=== PATIENT | male | born 1950 | race Caucasian/White ===

== ENCOUNTER 2020-07-03 17:16 | Inpatient (IN) ==
[2020-07-03] MEDS ORDERED: Ondansetron 4 MG/2 ML VIAL IVP STA (17:52)
[2020-07-03] MEDS ORDERED: Ketorolac 15 MG/ML VIAL IVP ONE (17:52)
[2020-07-03] MEDS ORDERED: *HR* HYDROmorphone (PF) 1 MG/ML SYRINGE IVP STA ×2 (17:52→19:22)
[2020-07-03] MEDS ORDERED: 0.9 % Sodium Chloride 1,000 ML IVC ONE (17:54)
[2020-07-03 18:14] LABS: Bilirubin,Urine Negative (Negative); Blood,Urine Small (Negative); Clarity,Urine Clear (Clear); Color,Urine Yellow (Yellow); Glucose,Urine (UA) Normal (Normal); Ketones,Urine Negative (Negative); Leukocyte Esterase,Urine Negative (Negative); Mucus,Urine Few per lpf (None-Few); Nitrite,Urine Negative (Negative); Protein,Urine Negative (Neg-Trace); Specific Gravity,Urine 1.022 (1.010-1.025); WBC,Urine 0-3 per hpf (0-3)
[2020-07-03] MEDS ORDERED: MetroNIDAZOLE 500 MG/100 ML 500 MG/100 ML BAG IVPB ONE (18:30)
[2020-07-03 19:27] LABS: Basophils % 0.4 %; Eosinophils # 0.2 K/mcL (0.0-0.6); Eosinophils % 2.6 %; Hematocrit 33.3 % (37.5-50.1); Immature Granulocytes % 0.3 % (0-4); Lymphocytes # 1.1 K/mcL (0.6-4.6); Lymphocytes % 14.2 %; Mean Platelet Volume 10.9 fL (9.4-12.4); Monocytes % 12.8 %; Neutrophils # 5.3 K/mcL (1.6-8.9); Platelet Count 242 K/mcL (140-400); Red Blood Count 4.16 M/mcL (4.19-5.50); Red Cell Distribution Width 15.3 % (11.5-14.5); Segmented Neutrophils % 69.7 %; White Blood Count 7.7 K/mcL (4.3-11.1)
[2020-07-03 19:49] LABS: Alanine Aminotransferase 13 Units/L (7-52); Albumin 3.7 g/dL (3.5-5.7); Albumin/Globulin Ratio 1.2 (1.1-2.2); Alkaline Phosphatase 74 Units/L (34-104); Aspartate Amino Transferase 18 Units/L (13-39); BUN/Creatinine Ratio 20 (6-26); Bilirubin,Direct 0.1 mg/dL (0.0-0.2); Bilirubin,Indirect 0.4 mg/dL (0.0-1.0); Bilirubin,Total 0.5 mg/dL (0.3-1.0); Blood Urea Nitrogen 17 mg/dL (8-23); Calcium 8.9 mg/dL (8.6-10.3); Carbon Dioxide 27 mEq/L (23-29); Chloride 102 mEq/L (98-107); Globulin 3.2 g/dL (2.4-3.5); Glucose 109 mg/dL (70-105); Lipase 20 Units/L (11-82); Osmolality,Calculated 288 (280-300); Potassium 3.9 mEq/L (3.5-5.1); Sodium 138 mEq/L (136-145); Total Protein 6.9 g/dL (6.4-8.9); eGFR For African Americans > 60 (> 60); eGFR For Non-African Americans > 60 (> 60)
[2020-07-03] MEDS ORDERED: Ondansetron 4 MG/2 ML VIAL IVP PRN (20:09)
[2020-07-03] MEDS ORDERED: Naloxone 0.4 MG/ML INJ IVP PRN (20:09)
[2020-07-03] MEDS ORDERED: 0.9 % Sodium Chloride 1,000 ML IVC SCH (20:15)
[2020-07-03 21:07] LABS: Immature Reticulocyte % 24.9 % (11.0-38.0); Retculocyte # 0.04 M/mcL (0.05-0.10); Reticulocyte % 0.9 % (1.6-2.8)
[2020-07-03 21:26] LABS: Iron < 10 mcg/dL (65-175); Transferrin 257 mg/dL (203-362)
[2020-07-04] MEDS: MetroNIDAZOLE 500 MG/100 ML 500 MG/100 ML BAG IVPB SCH ×3 (01:45→15:40)
[2020-07-04 02:36] LABS: Hematocrit 30.7 % (37.5-50.1); Hemoglobin 9.4 g/dL (12.9-16.9); Mean Corpuscular HGB Conc 30.6 g/dL (31.6-35.5); Mean Corpuscular Hemoglobin 24.7 pg (28.0-33.3); Mean Corpuscular Volume 80.8 fL (83.0-100.0); Platelet Count 220 K/mcL (140-400); Red Cell Distribution Width 15.5 % (11.5-14.5); White Blood Count 6.5 K/mcL (4.3-11.1)
[2020-07-04 02:54] LABS: BUN/Creatinine Ratio 14 (6-26); Blood Urea Nitrogen 12 mg/dL (8-23); Calcium 8.4 mg/dL (8.6-10.3); Carbon Dioxide 23 mEq/L (23-29); Chloride 108 mEq/L (98-107); Glucose 106 mg/dL (70-105); Osmolality,Calculated 288 (280-300); Potassium 3.9 mEq/L (3.5-5.1); Sodium 139 mEq/L (136-145); eGFR For African Americans > 60 (> 60); eGFR For Non-African Americans > 60 (> 60)
[2020-07-04 03:13] LABS: Ferritin 39 ng/mL (20-250)
[2020-07-04 03:51] LABS: Folate > 22.3 ng/mL (3.0-16.0); Vitamin B12 332 pg/mL (250-1100)
[2020-07-04] MEDS: Acetaminophen 325 MG TABLET PO PRN (09:22)
[2020-07-04] MEDS: Latanoprost 2.5 ML BOTTLE BOTH EYES SCH (22:29)
[2020-07-04] MEDS: Dorzolamide OPTH 10 ML BOTTLE BOTH EYES SCH (22:29)
[2020-07-05 01:36] LABS: Basophils % 0.8 %; Eosinophils # 0.3 K/mcL (0.0-0.6); Eosinophils % 5.1 %; Hematocrit 30.9 % (37.5-50.1); Hemoglobin 9.3 g/dL (12.9-16.9); Immature Granulocytes % 0.2 % (0-4); Lymphocytes % 18.9 %; Mean Corpuscular HGB Conc 30.1 g/dL (31.6-35.5); Mean Corpuscular Hemoglobin 24.4 pg (28.0-33.3); Mean Corpuscular Volume 81.1 fL (83.0-100.0); Mean Platelet Volume 10.7 fL (9.4-12.4); Monocytes # 0.6 K/mcL (0.0-1.3); Monocytes % 10.8 %; Neutrophils # 3.3 K/mcL (1.6-8.9); Platelet Count 223 K/mcL (140-400); Red Blood Count 3.81 M/mcL (4.19-5.50); Red Cell Distribution Width 15.6 % (11.5-14.5); Segmented Neutrophils % 64.2 %; White Blood Count 5.1 K/mcL (4.3-11.1)
[2020-07-05 01:54] LABS: BUN/Creatinine Ratio 11 (6-26); Blood Urea Nitrogen 9 mg/dL (8-23); Calcium 8.3 mg/dL (8.6-10.3); Carbon Dioxide 26 mEq/L (23-29); Chloride 106 mEq/L (98-107); Glucose 119 mg/dL (70-105); Osmolality,Calculated 286 (280-300); Potassium 3.8 mEq/L (3.5-5.1); Sodium 138 mEq/L (136-145); eGFR For African Americans > 60 (> 60); eGFR For Non-African Americans > 60 (> 60)
[2020-07-05] MEDS: MetroNIDAZOLE 500 MG/100 ML 500 MG/100 ML BAG IVPB SCH ×2 (03:03→09:15)
[2020-07-05] MEDS: Dorzolamide OPTH 10 ML BOTTLE BOTH EYES SCH ×2 (09:17→20:09)
[2020-07-05] MEDS: metroNIDAZOLE 500 MG TABLET PO SCH ×2 (16:33→20:03)
[2020-07-05] MEDS: Acetaminophen 325 MG TABLET PO PRN (17:32)
[2020-07-05] MEDS: Latanoprost 2.5 ML BOTTLE BOTH EYES SCH (20:10)
[2020-07-05] MEDS ORDERED: Acetaminophen IV 500 MG/50 ML BAG IVPB ONE (23:20)
[2020-07-06 07:34] VITALS: BP 138/71
[2020-07-06] MEDS ORDERED: Dorzolamide OPTH 10 ML BOTTLE BOTH EYES SCH (09:00)
[2020-07-06] MEDS: metroNIDAZOLE 500 MG TABLET PO SCH (09:50)
== END 2020-07-06 10:14 | disposition home or self-care (01) | DRG 392 ==
LOC: EMEROOARM 17:16 → 3ANU 17:16 → SUATTDRO 21:49 → 3ANU 22:15
PROVIDERS: ADMIT Internal Medicine; ATTEND Family Medicine

== ENCOUNTER 2021-10-30 17:11 | Inpatient (IN) ==
[2021-10-30] MEDS ORDERED: Piperacillin/Tazobactam 3.375 GM in 0.9 % Sodium Chloride Mini Bag 100 ML IVPB ONE (18:01)
[2021-10-30] MEDS ORDERED: Ondansetron 4 MG/2 ML VIAL IVP ONE (18:25)
[2021-10-30] MEDS ORDERED: *HR* FentaNYL (PF) 100 MCG/2 ML VIAL IVP STA (18:25)
[2021-10-30] MEDS ORDERED: 0.9 % Sodium Chloride 1,000 ML IVC ONE (18:25)
[2021-10-30 19:15] LABS: Hematocrit 29.9 % (37.5-50.1); Mean Corpuscular HGB Conc 30.1 g/dL (31.6-35.5); Mean Corpuscular Hemoglobin 21.5 pg (28.0-33.3); Mean Corpuscular Volume 71.5 fL (83.0-100.0); Mean Platelet Volume 9.4 fL (9.4-12.4); Platelet Count 318 K/mcL (140-400); Red Blood Count 4.18 M/mcL (4.19-5.50); Red Cell Distribution Width 18.3 % (11.5-14.5); White Blood Count 6.3 K/mcL (4.3-11.1)
[2021-10-30 19:34] LABS: BUN/Creatinine Ratio 11 (6-26); Blood Urea Nitrogen 10 mg/dL (8-23); Calcium 8.3 mg/dL (8.6-10.3); Carbon Dioxide 25 mEq/L (23-29); Chloride 102 mEq/L (98-107); Glucose 101 mg/dL (70-105); Osmolality,Calculated 275 (280-300); Potassium 3.8 mEq/L (3.5-5.1); Sodium 133 mEq/L (136-145); eGFR For African Americans > 60 (> 60); eGFR For Non-African Americans > 60 (> 60)
[2021-10-30] MEDS ORDERED: *HR* Promethazine 25 MG/ML VIAL IM PRN (20:09)
[2021-10-30] MEDS ORDERED: Naloxone 0.4 MG/ML INJ IVP PRN (20:09)
[2021-10-30] MEDS ORDERED: Ondansetron 4 MG/2 ML VIAL IVP PRN (20:09)
[2021-10-30] MEDS ORDERED: *HR* OxyCODONE Immed Rel 5 MG TABLET PO PRN (20:09)
[2021-10-30] MEDS ORDERED: Acetaminophen 325 MG TABLET PO PRN (20:09)
[2021-10-30] MEDS ORDERED: *HR* HYDROcodone/Acet 5/325 mg TABLET PO PRN (20:09)
[2021-10-30] MEDS: D5% in 0.45% NACL 1,000 ML IVC SCH (22:47)
[2021-10-30] MEDS: Dorzolamide OPTH 10 ML BOTTLE BOTH EYES SCH (22:49)
[2021-10-30] MEDS: Latanoprost 2.5 ML BOTTLE BOTH EYES SCH (22:49)
[2021-10-31] MEDS: Piperacillin/Tazobactam 3.375 GM in 0.9 % Sodium Chloride Mini Bag 100 ML IVPB SCH ×3 (03:42→18:26)
[2021-10-31] MEDS: *HR* Enoxaparin 40 MG/0.4 ML SYRINGE SQ SCH (05:20)
[2021-10-31 06:07] LABS: Basophils % 0.8 %; Hematocrit 27.9 % (37.5-50.1); Hemoglobin 8.4 g/dL (12.9-16.9); Immature Granulocytes % 0.3 % (0-4); Lymphocytes # 0.7 K/mcL (0.6-4.6); Lymphocytes % 17.9 %; Mean Corpuscular HGB Conc 30.1 g/dL (31.6-35.5); Mean Corpuscular Hemoglobin 21.4 pg (28.0-33.3); Mean Corpuscular Volume 71.2 fL (83.0-100.0); Mean Platelet Volume 9.3 fL (9.4-12.4); Monocytes # 0.6 K/mcL (0.0-1.3); Monocytes % 14.5 %; Neutrophils # 2.5 K/mcL (1.6-8.9); Platelet Count 282 K/mcL (140-400); Red Blood Count 3.92 M/mcL (4.19-5.50); Red Cell Distribution Width 18.6 % (11.5-14.5); Segmented Neutrophils % 65.5 %; White Blood Count 3.9 K/mcL (4.3-11.1)
[2021-10-31 06:11] LABS: INR 1.3; Prothrombin Time 14.9 Seconds (9.4-12.1)
[2021-10-31 06:29] LABS: BUN/Creatinine Ratio 10 (6-26); Blood Urea Nitrogen 11 mg/dL (8-23); Carbon Dioxide 23 mEq/L (23-29); Chloride 105 mEq/L (98-107); Glucose 133 mg/dL (70-105); Magnesium 1.8 mg/dL (1.6-2.6); Osmolality,Calculated 279 (280-300); Potassium 3.9 mEq/L (3.5-5.1); Sodium 134 mEq/L (136-145); eGFR For African Americans > 60 (> 60); eGFR For Non-African Americans > 60 (> 60)
[2021-10-31] MEDS ORDERED: *HR* Dextrose 50 % in Water (Syg) 50 ML SYRINGE IVP PRN (08:32)
[2021-10-31] MEDS ORDERED: D5% in Water 1,000 ML IVC PRN (08:32)
[2021-10-31] MEDS ORDERED: Dextrose 4 GM Chewable Tablets PO PRN ×2 (08:32)
[2021-10-31] MEDS: D5% in 0.45% NACL 1,000 ML IVC SCH (08:49)
[2021-10-31] MEDS: Dorzolamide OPTH 10 ML BOTTLE BOTH EYES SCH ×2 (08:51→22:08)
[2021-10-31] MEDS: Insulin LISPRO 300 UNITS/3 ML VIAL SUBQ SCH ×2 (12:45→18:40)
[2021-10-31] MEDS: Latanoprost 2.5 ML BOTTLE BOTH EYES SCH (22:08)
[2021-11-01] MEDS ORDERED: Melatonin 3 MG TABLET PO PRN (00:15)
[2021-11-01] MEDS: Piperacillin/Tazobactam 3.375 GM in 0.9 % Sodium Chloride Mini Bag 100 ML IVPB SCH ×3 (03:25→20:06)
[2021-11-01] MEDS: *HR* Enoxaparin 40 MG/0.4 ML SYRINGE SQ SCH (06:27)
[2021-11-01 07:28] LABS: Basophils % 0.7 %; Eosinophils # 0.2 K/mcL (0.0-0.6); Eosinophils % 4.8 %; Hematocrit 31.2 % (37.5-50.1); Hemoglobin 9.4 g/dL (12.9-16.9); Immature Granulocytes % 0.4 % (0-4); Lymphocytes % 22.7 %; Mean Corpuscular HGB Conc 30.1 g/dL (31.6-35.5); Mean Corpuscular Hemoglobin 21.7 pg (28.0-33.3); Mean Corpuscular Volume 71.9 fL (83.0-100.0); Mean Platelet Volume 9.7 fL (9.4-12.4); Monocytes # 0.6 K/mcL (0.0-1.3); Neutrophils # 2.7 K/mcL (1.6-8.9); Platelet Count 333 K/mcL (140-400); Red Blood Count 4.34 M/mcL (4.19-5.50); Red Cell Distribution Width 18.6 % (11.5-14.5); Segmented Neutrophils % 58.4 %; White Blood Count 4.5 K/mcL (4.3-11.1)
[2021-11-01 07:32] LABS: BUN/Creatinine Ratio 8 (6-26); Blood Urea Nitrogen 8 mg/dL (8-23); Carbon Dioxide 26 mEq/L (23-29); Chloride 104 mEq/L (98-107); Potassium 3.9 mEq/L (3.5-5.1); Sodium 138 mEq/L (136-145); eGFR For African Americans > 60 (> 60)
[2021-11-01 07:33] LABS: Calcium 8.5 mg/dL (8.6-10.3); Glucose 89 mg/dL (70-105); Osmolality,Calculated 284 (280-300); Phosphorous 3.4 mg/dL (2.7-4.5); eGFR For Non-African Americans > 60 (> 60)
[2021-11-01] MEDS: Dorzolamide OPTH 10 ML BOTTLE BOTH EYES SCH ×2 (08:18→20:08)
[2021-11-01] MEDS: Latanoprost 2.5 ML BOTTLE BOTH EYES SCH (20:06)
[2021-11-02 01:19] LABS: Basophils % 0.5 %; Eosinophils # 0.2 K/mcL (0.0-0.6); Eosinophils % 3.3 %; Hemoglobin 9.4 g/dL (12.9-16.9); Immature Granulocytes % 0.4 % (0-4); Lymphocytes # 1.1 K/mcL (0.6-4.6); Lymphocytes % 18.4 %; Mean Corpuscular HGB Conc 29.4 g/dL (31.6-35.5); Mean Corpuscular Volume 71.4 fL (83.0-100.0); Mean Platelet Volume 9.5 fL (9.4-12.4); Monocytes # 0.6 K/mcL (0.0-1.3); Monocytes % 10.7 %; Neutrophils # 3.8 K/mcL (1.6-8.9); Platelet Count 340 K/mcL (140-400); Red Blood Count 4.48 M/mcL (4.19-5.50); Red Cell Distribution Width 18.6 % (11.5-14.5); Segmented Neutrophils % 66.7 %; White Blood Count 5.7 K/mcL (4.3-11.1)
[2021-11-02 01:38] LABS: BUN/Creatinine Ratio 8 (6-26); Blood Urea Nitrogen 8 mg/dL (8-23); Calcium 8.3 mg/dL (8.6-10.3); Carbon Dioxide 25 mEq/L (23-29); Chloride 104 mEq/L (98-107); Glucose 92 mg/dL (70-105); Magnesium 1.9 mg/dL (1.6-2.6); Osmolality,Calculated 280 (280-300); Phosphorous 3.5 mg/dL (2.7-4.5); Sodium 136 mEq/L (136-145); eGFR For African Americans > 60 (> 60); eGFR For Non-African Americans > 60 (> 60)
[2021-11-02] MEDS: Piperacillin/Tazobactam 3.375 GM in 0.9 % Sodium Chloride Mini Bag 100 ML IVPB SCH (02:55)
[2021-11-02] MEDS: *HR* Enoxaparin 40 MG/0.4 ML SYRINGE SQ SCH (06:15)
[2021-11-02 07:50] VITALS: BP 119/69; PULSE 64; TEMP 98.9; O2SAT 95
[2021-11-02] MEDS: Dorzolamide OPTH 10 ML BOTTLE BOTH EYES SCH (09:24)
== END 2021-11-02 11:41 | disposition home or self-care (01) | DRG 392 ==
LOC: EMEROOARM 17:11 → 3ANU 17:11 → SUATTDRO 20:53 → 3ANU 21:49
PROVIDERS: ADMIT Family Medicine; ATTEND Internal Medicine

== ENCOUNTER 2021-11-24 10:40 | Inpatient (IN) ==
[2021-11-24 11:47] LABS: Bacteria,Urine Few per hpf (None-Few); Bilirubin,Urine Negative (Negative); Blood,Urine Negative (Negative); Clarity,Urine Clear (Clear); Color,Urine Yellow (Yellow); Glucose,Urine (UA) Normal (Normal); Ketones,Urine Negative (Negative); Leukocyte Esterase,Urine Small (Negative); Mucus,Urine Few per lpf (None-Few); Nitrite,Urine Negative (Negative); PH,Urine 6.5 pH Units (5.0-8.0); Protein,Urine 30 mg/dL (Neg-Trace); Specific Gravity,Urine 1.024 (1.010-1.025); Squamous Epithelial Cell,Urine Few per hpf (None-Few); Urobilinogen,Urine Normal (Normal); WBC,Urine 15-30 per hpf (0-3)
[2021-11-24] MEDS ORDERED: 0.9 % Sodium Chloride 500 ML IVC ONE (11:56)
[2021-11-24] MEDS ORDERED: Ondansetron 4 MG/2 ML VIAL IVP ONE (11:56)
[2021-11-24] MEDS ORDERED: *HR* FentaNYL (PF) 100 MCG/2 ML VIAL IVP ONE (11:56)
[2021-11-24 12:49] LABS: Basophils % 0.4 %; Eosinophils % 0.1 %; Hematocrit 32.7 % (37.5-50.1); Hemoglobin 9.8 g/dL (12.9-16.9); Immature Granulocytes % 0.5 % (0-4); Lymphocytes % 9.1 %; Mean Corpuscular Hemoglobin 21.6 pg (28.0-33.3); Mean Platelet Volume 9.4 fL (9.4-12.4); Monocytes % 9.2 %; Neutrophils # 8.5 K/mcL (1.6-8.9); Platelet Count 386 K/mcL (140-400); Red Blood Count 4.54 M/mcL (4.19-5.50); Red Cell Distribution Width 20.2 % (11.5-14.5); Segmented Neutrophils % 80.7 %; White Blood Count 10.5 K/mcL (4.3-11.1)
[2021-11-24 13:11] LABS: BUN/Creatinine Ratio 13 (6-26); Blood Urea Nitrogen 12 mg/dL (8-23); Calcium 8.5 mg/dL (8.6-10.3); Carbon Dioxide 26 mEq/L (23-29); Chloride 100 mEq/L (98-107); Glucose 116 mg/dL (70-105); Osmolality,Calculated 279 (280-300); Potassium 3.6 mEq/L (3.5-5.1); Sodium 134 mEq/L (136-145); eGFR For African Americans > 60 (> 60); eGFR For Non-African Americans > 60 (> 60)
[2021-11-24 13:41] LABS: Alanine Aminotransferase 10 Units/L (7-52); Albumin 3.4 g/dL (3.5-5.7); Albumin/Globulin Ratio 0.9 (1.1-2.2); Alkaline Phosphatase 60 Units/L (34-104); Aspartate Amino Transferase 12 Units/L (13-39); Bilirubin,Direct 0.2 mg/dL (0.0-0.2); Bilirubin,Indirect 0.8 mg/dL (0.0-1.0); Globulin 3.8 g/dL (2.4-3.5); Total Protein 7.2 g/dL (6.4-8.9)
[2021-11-24] MEDS ORDERED: Isovue-370 500 ML BOTTLE IVP ONE (13:57)
[2021-11-24] MEDS ORDERED: Piperacillin/Tazobactam 3.375 GM in 0.9 % Sodium Chloride Mini Bag 100 ML IVPB ONE (13:59)
[2021-11-24] MEDS ORDERED: *HR* HYDROmorphone (PF) 1 MG/ML SYRINGE IVP ONE (18:32)
[2021-11-24] MEDS ORDERED: Naloxone 0.4 MG/ML INJ IVP PRN (20:08)
[2021-11-24] MEDS ORDERED: Melatonin 3 MG TABLET PO PRN (20:08)
[2021-11-24] MEDS ORDERED: Ibuprofen 400 MG TABLET PO PRN (20:08)
[2021-11-24] MEDS ORDERED: *HR* HYDROcodone/Acet 5/325 mg TABLET PO PRN (20:08)
[2021-11-24] MEDS ORDERED: *HR* Dextrose 50 % in Water (Syg) 50 ML SYRINGE IVP PRN (20:11)
[2021-11-24] MEDS ORDERED: D5% in Water 1,000 ML IVC PRN (20:11)
[2021-11-24] MEDS ORDERED: Dextrose 4 GM Chewable Tablets PO PRN ×2 (20:11)
[2021-11-24] MEDS ORDERED: Ringers Solution, Lactated 1,000 ML IVC SCH (20:15)
[2021-11-24] MEDS ORDERED: Fluconazole 400 MG/200 ML 400 MG/200 ML BAG IVPB SCH (20:15)
[2021-11-24] MEDS ORDERED: Fluconazole 400 MG/200 ML 400 MG/200 ML BAG IVPB ONE (20:28)
[2021-11-24] MEDS: Lactobacillus 1 EACH CAP.SPRINK PO SCH (21:44)
[2021-11-24] MEDS: Chlorhexidine Rinse 15 ML MOUTHWASH MM SCH (21:45)
[2021-11-24] MEDS ORDERED: Morphine Sulfate 2 MG/ML SYRINGE IVP ONE (22:10)
[2021-11-24] MEDS: Ondansetron 4 MG/2 ML VIAL IVP PRN (22:27)
[2021-11-24] MEDS ORDERED: *HR* OxyCODONE Immed Rel 5 MG TABLET PO PRN (23:05)
[2021-11-25 02:51] LABS: Basophils % 0.2 %; Eosinophils % 0.3 %; Hematocrit 30.2 % (37.5-50.1); Hemoglobin 9.2 g/dL (12.9-16.9); Immature Granulocytes % 0.2 % (0-4); Lymphocytes # 0.9 K/mcL (0.6-4.6); Lymphocytes % 10.6 %; Mean Corpuscular HGB Conc 30.5 g/dL (31.6-35.5); Mean Corpuscular Hemoglobin 21.8 pg (28.0-33.3); Mean Corpuscular Volume 71.6 fL (83.0-100.0); Mean Platelet Volume 9.6 fL (9.4-12.4); Monocytes # 0.8 K/mcL (0.0-1.3); Monocytes % 9.6 %; Neutrophils # 6.9 K/mcL (1.6-8.9); Platelet Count 378 K/mcL (140-400); Red Blood Count 4.22 M/mcL (4.19-5.50); Red Cell Distribution Width 20.1 % (11.5-14.5); Segmented Neutrophils % 79.1 %; White Blood Count 8.7 K/mcL (4.3-11.1)
[2021-11-25 02:58] LABS: INR 1.4; Prothrombin Time 15.5 Seconds (9.4-12.1)
[2021-11-25 03:00] LABS: Activated Partial Thrombo Time 28.4 Seconds (26.0-36.0)
[2021-11-25 03:06] LABS: Alanine Aminotransferase 9 Units/L (7-52); Albumin/Globulin Ratio 0.9 (1.1-2.2); Alkaline Phosphatase 54 Units/L (34-104); Aspartate Amino Transferase 12 Units/L (13-39); BUN/Creatinine Ratio 13 (6-26); Bilirubin,Total 0.8 mg/dL (0.3-1.0); Blood Urea Nitrogen 12 mg/dL (8-23); Carbon Dioxide 26 mEq/L (23-29); Chloride 101 mEq/L (98-107); Globulin 3.5 g/dL (2.4-3.5); Glucose 97 mg/dL (70-105); Magnesium 1.8 mg/dL (1.6-2.6); Osmolality,Calculated 280 (280-300); Phosphorous 2.9 mg/dL (2.7-4.5); Sodium 135 mEq/L (136-145); Total Protein 6.5 g/dL (6.4-8.9); eGFR For African Americans > 60 (> 60); eGFR For Non-African Americans > 60 (> 60)
[2021-11-25 04:05] LABS: C-Reactive Protein 133 mg/L (Less than 10); Ferritin 89 ng/mL (20-250); Iron < 10 mcg/dL (65-175); Thyroid Stimulating Hormone 2.582 mcIU/mL (0.340-5.600); Transferrin 159 mg/dL (203-362)
[2021-11-25 04:06] LABS: Folate 13.8 ng/mL (3.0-16.0)
[2021-11-25] MEDS: Calcium Gluconate 1gm/50mL 1 GM/50 ML BAG IVPB SCH ×2 (04:46→05:50)
[2021-11-25] MEDS: Pantoprazole 40 MG VIAL IVP SCH ×2 (04:47→17:34)
[2021-11-25] MEDS: polyethylene glycoL 3350 17 GM POWD.PACK PO SCH (07:13)
[2021-11-25] MEDS: Multivit/Ca/Min/Fe/FA 1 TAB TABLET PO SCH (07:13)
[2021-11-25] MEDS: Chlorhexidine Rinse 15 ML MOUTHWASH MM SCH ×2 (07:13→21:29)
[2021-11-25] MEDS: Lactobacillus 1 EACH CAP.SPRINK PO SCH ×2 (07:13→21:25)
[2021-11-25] MEDS ORDERED: Artificial Tears SOLN 15 ML BOTTLE BOTH EYES PRN (07:49)
[2021-11-25] MEDS ORDERED: MetroNIDAZOLE 500 MG/100 ML 500 MG/100 ML BAG IVPB SCH (08:00)
[2021-11-25] MEDS: Dorzolamide OPTH 10 ML BOTTLE BOTH EYES SCH ×2 (09:32→21:28)
[2021-11-25] MEDS ORDERED: D5% in 0.45% NACL 1,000 ML IVC SCH (11:30)
[2021-11-25] MEDS: Insulin LISPRO 300 UNITS/3 ML VIAL SUBQ SCH ×2 (11:52→17:55)
[2021-11-25] MEDS ORDERED: *HR* FentaNYL (PF) 100 MCG/2 ML VIAL IVP ONE (15:10)
[2021-11-25] MEDS ORDERED: *HR* FentaNYL (PF) 100 MCG/2 ML VIAL ONE (15:11)
[2021-11-25] MEDS: Piperacillin/Tazobactam 3.375 GM in 0.9 % Sodium Chloride Mini Bag 100 ML IVPB SCH ×2 (15:43→21:25)
[2021-11-25] MEDS: *HR* Heparin 5,000 UNIT/ML VIAL SQ SCH (17:34)
[2021-11-25] MEDS ORDERED: SODIUM CHLORIDE/NAHCO3/KCL/PEG 4,000 ML SOLN.RECON PO ONE (17:47)
[2021-11-25] MEDS: Acetaminophen 325 MG TABLET PO PRN (19:52)
[2021-11-25] MEDS: Latanoprost 2.5 ML BOTTLE BOTH EYES SCH (22:03)
[2021-11-25] MEDS ORDERED: Piperacillin/Tazobactam 3.375 GM in 0.9 % Sodium Chloride Mini Bag 100 ML IVPB SCH (23:00)
[2021-11-26] MEDS: Insulin LISPRO 300 UNITS/3 ML VIAL SUBQ SCH ×4 (00:40→17:43)
[2021-11-26 03:54] LABS: Basophils % 0.3 %; Eosinophils # 0.1 K/mcL (0.0-0.6); Eosinophils % 0.7 %; Hematocrit 29.5 % (37.5-50.1); Hemoglobin 8.9 g/dL (12.9-16.9); Immature Granulocytes % 0.5 % (0-4); Lymphocytes # 0.7 K/mcL (0.6-4.6); Lymphocytes % 7.3 %; Mean Corpuscular HGB Conc 30.2 g/dL (31.6-35.5); Mean Platelet Volume 9.4 fL (9.4-12.4); Monocytes # 0.6 K/mcL (0.0-1.3); Monocytes % 6.8 %; Platelet Count 345 K/mcL (140-400); Red Blood Count 4.04 M/mcL (4.19-5.50); Segmented Neutrophils % 84.4 %; White Blood Count 9.5 K/mcL (4.3-11.1)
[2021-11-26 04:15] LABS: BUN/Creatinine Ratio 13 (6-26); Blood Urea Nitrogen 12 mg/dL (8-23); Calcium 8.5 mg/dL (8.6-10.3); Carbon Dioxide 28 mEq/L (23-29); Chloride 102 mEq/L (98-107); Glucose 126 mg/dL (70-105); Osmolality,Calculated 283 (280-300); Potassium 4.4 mEq/L (3.5-5.1); Sodium 136 mEq/L (136-145); eGFR For African Americans > 60 (> 60); eGFR For Non-African Americans > 60 (> 60)
[2021-11-26] MEDS: Piperacillin/Tazobactam 3.375 GM in 0.9 % Sodium Chloride Mini Bag 100 ML IVPB SCH ×3 (06:05→21:24)
[2021-11-26] MEDS: Pantoprazole 40 MG VIAL IVP SCH ×2 (06:06→17:46)
[2021-11-26] MEDS: *HR* Heparin 5,000 UNIT/ML VIAL SQ SCH ×2 (06:06→17:46)
[2021-11-26] MEDS: Lactobacillus 1 EACH CAP.SPRINK PO SCH ×2 (07:52→21:23)
[2021-11-26] MEDS: Multivit/Ca/Min/Fe/FA 1 TAB TABLET PO SCH (07:52)
[2021-11-26] MEDS: Chlorhexidine Rinse 15 ML MOUTHWASH MM SCH ×2 (07:52→21:23)
[2021-11-26] MEDS: polyethylene glycoL 3350 17 GM POWD.PACK PO SCH (07:52)
[2021-11-26] MEDS: Dorzolamide OPTH 10 ML BOTTLE BOTH EYES SCH ×2 (09:12→21:25)
[2021-11-26] MEDS ORDERED: Milk and Molasses Enema 200 ML RC ONE (10:48)
[2021-11-26] MEDS ORDERED: D5% in 0.45% NACL 1,000 ML IVC SCH (12:00)
[2021-11-26] MEDS: Acetaminophen 325 MG TABLET PO PRN (12:29)
[2021-11-26] MEDS ORDERED: *HR* Propofol 200 MG/20 ML VIAL IVP ONE (12:47)
[2021-11-26] MEDS ORDERED: Lidocaine -MPF 2% 2 ML VIAL ONE (12:50)
[2021-11-26] MEDS: Latanoprost 2.5 ML BOTTLE BOTH EYES SCH (21:26)
[2021-11-27] MEDS: Insulin LISPRO 300 UNITS/3 ML VIAL SUBQ SCH ×4 (00:17→18:35)
[2021-11-27 02:52] LABS: Basophils % 0.5 %; Eosinophils # 0.2 K/mcL (0.0-0.6); Eosinophils % 2.4 %; Hematocrit 28.5 % (37.5-50.1); Hemoglobin 8.8 g/dL (12.9-16.9); Immature Granulocytes % 0.3 % (0-4); Lymphocytes # 0.9 K/mcL (0.6-4.6); Lymphocytes % 12.2 %; Mean Corpuscular HGB Conc 30.9 g/dL (31.6-35.5); Mean Corpuscular Hemoglobin 21.7 pg (28.0-33.3); Mean Corpuscular Volume 70.2 fL (83.0-100.0); Mean Platelet Volume 9.8 fL (9.4-12.4); Monocytes # 0.6 K/mcL (0.0-1.3); Monocytes % 7.6 %; Neutrophils # 5.7 K/mcL (1.6-8.9); Platelet Count 346 K/mcL (140-400); Red Blood Count 4.06 M/mcL (4.19-5.50); Red Cell Distribution Width 19.7 % (11.5-14.5); White Blood Count 7.4 K/mcL (4.3-11.1)
[2021-11-27 03:18] LABS: BUN/Creatinine Ratio 11 (6-26); Blood Urea Nitrogen 10 mg/dL (8-23); Carbon Dioxide 23 mEq/L (23-29); Chloride 103 mEq/L (98-107); Glucose 87 mg/dL (70-105); Magnesium 1.8 mg/dL (1.6-2.6); Osmolality,Calculated 278 (280-300); Phosphorous 3.1 mg/dL (2.7-4.5); Potassium 4.1 mEq/L (3.5-5.1); Sodium 135 mEq/L (136-145); eGFR For African Americans > 60 (> 60); eGFR For Non-African Americans > 60 (> 60)
[2021-11-27] MEDS: Ondansetron 4 MG/2 ML VIAL IVP PRN (05:47)
[2021-11-27] MEDS: Pantoprazole 40 MG VIAL IVP SCH ×2 (05:47→18:34)
[2021-11-27] MEDS: *HR* Heparin 5,000 UNIT/ML VIAL SQ SCH ×2 (05:47→18:34)
[2021-11-27] MEDS: Piperacillin/Tazobactam 3.375 GM in 0.9 % Sodium Chloride Mini Bag 100 ML IVPB SCH ×2 (05:48→15:01)
[2021-11-27] MEDS ORDERED: Ketamine HCL *QUVA* 50mg (1mL) SYRINGE ONE (07:15)
[2021-11-27] MEDS ORDERED: *HR* FentaNYL (PF) 100 MCG/2 ML VIAL ONE ×2 (07:16→10:17)
[2021-11-27] MEDS ORDERED: *HR* Propofol 200 MG/20 ML VIAL IVP ONE (07:16)
[2021-11-27] MEDS ORDERED: *HR* Midazolam HCl 2 MG/2 ML VIAL ONE (07:16)
[2021-11-27] MEDS ORDERED: Ondansetron 4 MG/2 ML VIAL IVP PRN ×3 (08:04→15:27)
[2021-11-27] MEDS ORDERED: Nitroglycerin 0.4 MG TAB.SUBL SL PRN ×2 (08:04→15:27)
[2021-11-27] MEDS ORDERED: *HR* Metoprolol 5 MG/5 ML VIAL IVP PRN ×2 (08:04→15:27)
[2021-11-27] MEDS ORDERED: *HR* HYDROmorphone PF 0.5 MG/0.5 ML SYRINGE IVP PRN ×2 (08:04→15:27)
[2021-11-27] MEDS ORDERED: Albuterol 2.5 MG/3 ML NEBULIZER IH PRN ×2 (08:04→15:27)
[2021-11-27] MEDS ORDERED: Naloxone 0.4 MG/ML INJ IVP PRN ×3 (08:04→15:27)
[2021-11-27] MEDS: Multivit/Ca/Min/Fe/FA 1 TAB TABLET PO SCH (08:29)
[2021-11-27] MEDS: polyethylene glycoL 3350 17 GM POWD.PACK PO SCH (08:29)
[2021-11-27] MEDS: Dorzolamide OPTH 10 ML BOTTLE BOTH EYES SCH ×3 (08:29→21:15)
[2021-11-27] MEDS: Lactobacillus 1 EACH CAP.SPRINK PO SCH ×2 (08:29→21:08)
[2021-11-27] MEDS: Chlorhexidine Rinse 15 ML MOUTHWASH MM SCH ×2 (08:29→21:08)
[2021-11-27] MEDS ORDERED: Ondansetron 4 MG/2 ML VIAL ONE ×2 (09:39→10:24)
[2021-11-27] MEDS ORDERED: *HR* Succinylcholine 200 MG/10 ML VIAL IVP ONE (09:39)
[2021-11-27] MEDS ORDERED: *HR* Rocuronium Bromide 50 MG/5 ML VIAL ONE ×2 (09:39→10:24)
[2021-11-27] MEDS ORDERED: Lidocaine -MPF 2% 2 ML VIAL ONE (09:39)
[2021-11-27] MEDS ORDERED: Acetaminophen IV 1,000 MG/100 ML BAG IVPB ONE ×3 (10:28→15:27)
[2021-11-27] MEDS ORDERED: EPHEDrine 50 MG/ML VIAL ONE (10:50)
[2021-11-27] MEDS ORDERED: Sugammadex Sodium 200 MG/2 ML VIAL IV ONE (12:12)
[2021-11-27] MEDS ORDERED: *HR* HYDROMORPHONE 2 MG/ML VIAL ONE (12:45)
[2021-11-27] MEDS ORDERED: Dextrose 4 GM Chewable Tablets PO PRN ×2 (15:27)
[2021-11-27] MEDS ORDERED: Acetaminophen 325 MG TABLET PO PRN (15:27)
[2021-11-27] MEDS ORDERED: *HR* HYDROcodone/Acet 5/325 mg TABLET PO PRN (15:27)
[2021-11-27] MEDS ORDERED: D5% in Water 1,000 ML IVC PRN (15:27)
[2021-11-27] MEDS ORDERED: Artificial Tears SOLN 15 ML BOTTLE BOTH EYES PRN (15:27)
[2021-11-27] MEDS ORDERED: Morphine PCA 30 MG/ 30 ML 30 ML PCA.VIAL IVC PRN (15:27)
[2021-11-27] MEDS ORDERED: *HR* OxyCODONE Immed Rel 5 MG TABLET PO PRN (15:27)
[2021-11-27] MEDS ORDERED: *HR* Dextrose 50 % in Water (Syg) 50 ML SYRINGE IVP PRN (15:27)
[2021-11-27] MEDS ORDERED: D5% in 0.45% NACL 1,000 ML IVC SCH (15:30)
[2021-11-27] MEDS: cefTRIAXone 2,000 MG in 0.9 % Sodium Chloride 20 ML IVPB SCH (15:55)
[2021-11-27] MEDS: MetroNIDAZOLE 500 MG/100 ML 500 MG/100 ML BAG IVPB SCH (15:56)
[2021-11-27] MEDS: D5% in 0.45% NACL 1,000 ML IVC SCH (15:56)
[2021-11-27] MEDS ORDERED: MetroNIDAZOLE 500 MG/100 ML 500 MG/100 ML BAG IVPB SCH (16:00)
[2021-11-27] MEDS ORDERED: cefTRIAXone 2,000 MG in 0.9 % Sodium Chloride Mini Bag 100 ML IVPB SCH (16:00)
[2021-11-27] MEDS: Fluconazole 400 MG/200 ML 400 MG/200 ML BAG IVPB SCH (16:35)
[2021-11-27] MEDS: Acetaminophen IV 1,000 MG/100 ML BAG IVPB SCH ×2 (16:37→23:53)
[2021-11-27] MEDS: Latanoprost 2.5 ML BOTTLE BOTH EYES SCH ×2 (21:07→21:15)
[2021-11-28] MEDS: MetroNIDAZOLE 500 MG/100 ML 500 MG/100 ML BAG IVPB SCH ×3 (00:29→17:55)
[2021-11-28] MEDS: Insulin LISPRO 300 UNITS/3 ML VIAL SUBQ SCH ×4 (00:29→17:49)
[2021-11-28 02:00] LABS: Basophils % 0.1 %; Hematocrit 32.7 % (37.5-50.1); Hemoglobin 9.9 g/dL (12.9-16.9); Immature Granulocytes % 0.4 % (0-4); Lymphocytes # 0.5 K/mcL (0.6-4.6); Lymphocytes % 4.3 %; Mean Corpuscular HGB Conc 30.3 g/dL (31.6-35.5); Mean Corpuscular Hemoglobin 21.4 pg (28.0-33.3); Mean Corpuscular Volume 70.8 fL (83.0-100.0); Mean Platelet Volume 9.2 fL (9.4-12.4); Monocytes # 0.3 K/mcL (0.0-1.3); Monocytes % 2.3 %; Neutrophils # 10.4 K/mcL (1.6-8.9); Platelet Count 481 K/mcL (140-400); Red Blood Count 4.62 M/mcL (4.19-5.50); Red Cell Distribution Width 19.9 % (11.5-14.5); Segmented Neutrophils % 92.9 %
[2021-11-28 02:01] LABS: White Blood Count 11.2 K/mcL (4.3-11.1)
[2021-11-28 02:19] LABS: BUN/Creatinine Ratio 10 (6-26); Blood Urea Nitrogen 13 mg/dL (8-23); Calcium 8.3 mg/dL (8.6-10.3); Carbon Dioxide 24 mEq/L (23-29); Chloride 101 mEq/L (98-107); Glucose 139 mg/dL (70-105); Osmolality,Calculated 282 (280-300); Potassium 4.3 mEq/L (3.5-5.1); Sodium 135 mEq/L (136-145); eGFR For African Americans > 60 (> 60); eGFR For Non-African Americans 53 (> 60)
[2021-11-28] MEDS: Acetaminophen IV 1,000 MG/100 ML BAG IVPB SCH ×3 (05:55→17:54)
[2021-11-28] MEDS: *HR* Heparin 5,000 UNIT/ML VIAL SQ SCH ×2 (05:56→17:55)
[2021-11-28] MEDS: Pantoprazole 40 MG VIAL IVP SCH ×2 (05:58→17:55)
[2021-11-28] MEDS: Lactobacillus 1 EACH CAP.SPRINK PO SCH ×2 (08:13→20:22)
[2021-11-28] MEDS: polyethylene glycoL 3350 17 GM POWD.PACK PO SCH (08:13)
[2021-11-28] MEDS: Multivit/Ca/Min/Fe/FA 1 TAB TABLET PO SCH (08:13)
[2021-11-28] MEDS: Dorzolamide OPTH 10 ML BOTTLE BOTH EYES SCH ×2 (08:14→20:23)
[2021-11-28] MEDS: cefTRIAXone 2,000 MG in 0.9 % Sodium Chloride 20 ML IVPB SCH (08:23)
[2021-11-28] MEDS: Fluconazole 400 MG/200 ML 400 MG/200 ML BAG IVPB SCH (08:23)
[2021-11-28] MEDS: Chlorhexidine Rinse 15 ML MOUTHWASH MM SCH ×2 (08:24→20:22)
[2021-11-28] MEDS ORDERED: Isovue-370 500 ML BOTTLE IVP ONE (11:12)
[2021-11-28] MEDS: D5% in 0.45% NACL 1,000 ML IVC SCH (13:13)
[2021-11-28] MEDS: Latanoprost 2.5 ML BOTTLE BOTH EYES SCH (20:23)
[2021-11-29] MEDS: Insulin LISPRO 300 UNITS/3 ML VIAL SUBQ SCH ×4 (00:30→17:13)
[2021-11-29] MEDS: Acetaminophen IV 1,000 MG/100 ML BAG IVPB SCH ×5 (00:47→23:34)
[2021-11-29] MEDS: MetroNIDAZOLE 500 MG/100 ML 500 MG/100 ML BAG IVPB SCH ×4 (00:47→23:34)
[2021-11-29 05:30] LABS: Basophils % 0.1 %; Eosinophils % 0.1 %; Hematocrit 29.9 % (37.5-50.1); Hemoglobin 9.1 g/dL (12.9-16.9); Immature Granulocytes % 0.5 % (0-4); Lymphocytes # 0.9 K/mcL (0.6-4.6); Lymphocytes % 7.5 %; Mean Corpuscular HGB Conc 30.4 g/dL (31.6-35.5); Mean Corpuscular Hemoglobin 21.6 pg (28.0-33.3); Mean Platelet Volume 9.1 fL (9.4-12.4); Monocytes # 0.6 K/mcL (0.0-1.3); Monocytes % 5.4 %; Neutrophils # 10.3 K/mcL (1.6-8.9); Platelet Count 435 K/mcL (140-400); Red Blood Count 4.21 M/mcL (4.19-5.50); Red Cell Distribution Width 20.1 % (11.5-14.5); Segmented Neutrophils % 86.4 %; White Blood Count 11.9 K/mcL (4.3-11.1)
[2021-11-29 05:44] LABS: BUN/Creatinine Ratio 12 (6-26); Blood Urea Nitrogen 11 mg/dL (8-23); Carbon Dioxide 27 mEq/L (23-29); Chloride 103 mEq/L (98-107); Glucose 119 mg/dL (70-105); Osmolality,Calculated 283 (280-300); Potassium 4.1 mEq/L (3.5-5.1); Sodium 136 mEq/L (136-145); eGFR For African Americans > 60 (> 60); eGFR For Non-African Americans > 60 (> 60)
[2021-11-29 05:45] LABS: Phosphorous 3.2 mg/dL (2.7-4.5)
[2021-11-29] MEDS: Pantoprazole 40 MG VIAL IVP SCH ×2 (06:08→17:12)
[2021-11-29] MEDS: *HR* Heparin 5,000 UNIT/ML VIAL SQ SCH ×2 (06:08→17:12)
[2021-11-29] MEDS ORDERED: 0.9 % Sodium Chloride 1,000 ML ONE (07:47)
[2021-11-29] MEDS: Fluconazole 400 MG/200 ML 400 MG/200 ML BAG IVPB SCH (08:04)
[2021-11-29] MEDS: cefTRIAXone 2,000 MG in 0.9 % Sodium Chloride 20 ML IVPB SCH (08:05)
[2021-11-29] MEDS: polyethylene glycoL 3350 17 GM POWD.PACK PO SCH (08:06)
[2021-11-29] MEDS: Chlorhexidine Rinse 15 ML MOUTHWASH MM SCH ×2 (08:06→21:25)
[2021-11-29] MEDS: Lactobacillus 1 EACH CAP.SPRINK PO SCH ×2 (08:08→21:25)
[2021-11-29] MEDS: Dorzolamide OPTH 10 ML BOTTLE BOTH EYES SCH ×2 (08:08→21:25)
[2021-11-29] MEDS: Multivit/Ca/Min/Fe/FA 1 TAB TABLET PO SCH (08:08)
[2021-11-29] MEDS: D5% in 0.45% NACL 1,000 ML IVC SCH (13:53)
[2021-11-29] MEDS: Latanoprost 2.5 ML BOTTLE BOTH EYES SCH (21:25)
[2021-11-29] MEDS: Melatonin 3 MG TABLET PO PRN (23:34)
[2021-11-30] MEDS: Insulin LISPRO 300 UNITS/3 ML VIAL SUBQ SCH ×2 (00:23→06:30)
[2021-11-30] MEDS: GuaiFENesin Liq 200 MG/10 ML UDC PO PRN (00:45)
[2021-11-30 03:54] LABS: Basophils % 0.2 %; Eosinophils # 0.2 K/mcL (0.0-0.6); Eosinophils % 1.8 %; Hemoglobin 9.7 g/dL (12.9-16.9); Immature Granulocytes % 0.6 % (0-4); Lymphocytes % 12.2 %; Mean Corpuscular HGB Conc 29.4 g/dL (31.6-35.5); Mean Corpuscular Hemoglobin 21.1 pg (28.0-33.3); Mean Corpuscular Volume 71.7 fL (83.0-100.0); Mean Platelet Volume 9.1 fL (9.4-12.4); Monocytes # 0.5 K/mcL (0.0-1.3); Monocytes % 6.5 %; Neutrophils # 6.5 K/mcL (1.6-8.9); Platelet Count 447 K/mcL (140-400); Red Cell Distribution Width 20.9 % (11.5-14.5); Segmented Neutrophils % 78.7 %; White Blood Count 8.3 K/mcL (4.3-11.1)
[2021-11-30 04:11] LABS: Magnesium 1.8 mg/dL (1.6-2.6); Phosphorous 3.2 mg/dL (2.7-4.5)
[2021-11-30 04:12] LABS: BUN/Creatinine Ratio 13 (6-26); Blood Urea Nitrogen 10 mg/dL (8-23); Carbon Dioxide 24 mEq/L (23-29); Chloride 104 mEq/L (98-107); Glucose 84 mg/dL (70-105); Osmolality,Calculated 280 (280-300); Potassium 4.1 mEq/L (3.5-5.1); Sodium 136 mEq/L (136-145); eGFR For African Americans > 60 (> 60); eGFR For Non-African Americans > 60 (> 60)
[2021-11-30] MEDS: Acetaminophen IV 1,000 MG/100 ML BAG IVPB SCH ×4 (06:28→23:28)
[2021-11-30] MEDS: *HR* Heparin 5,000 UNIT/ML VIAL SQ SCH ×2 (06:29→17:47)
[2021-11-30] MEDS: Pantoprazole 40 MG VIAL IVP SCH ×2 (06:30→17:47)
[2021-11-30] MEDS: Dorzolamide OPTH 10 ML BOTTLE BOTH EYES SCH ×2 (08:04→20:51)
[2021-11-30] MEDS: Multivit/Ca/Min/Fe/FA 1 TAB TABLET PO SCH (08:04)
[2021-11-30] MEDS: Lactobacillus 1 EACH CAP.SPRINK PO SCH ×2 (08:05→20:49)
[2021-11-30] MEDS: cefTRIAXone 2,000 MG in 0.9 % Sodium Chloride 20 ML IVPB SCH (08:05)
[2021-11-30] MEDS: Chlorhexidine Rinse 15 ML MOUTHWASH MM SCH ×2 (08:05→20:49)
[2021-11-30] MEDS: polyethylene glycoL 3350 17 GM POWD.PACK PO SCH (08:05)
[2021-11-30] MEDS: Fluconazole 400 MG/200 ML 400 MG/200 ML BAG IVPB SCH (08:06)
[2021-11-30] MEDS: MetroNIDAZOLE 500 MG/100 ML 500 MG/100 ML BAG IVPB SCH ×3 (08:06→23:34)
[2021-11-30] MEDS: D5% in 0.45% NACL 1,000 ML IVC SCH (08:07)
[2021-11-30] MEDS ORDERED: Morphine Sulfate 2 MG/ML SYRINGE IVP PRN (10:13)
[2021-11-30] MEDS ORDERED: *HR* OxyCODONE Immed Rel 5 MG TABLET PO PRN ×2 (10:14)
[2021-11-30] MEDS: Latanoprost 2.5 ML BOTTLE BOTH EYES SCH (22:19)
[2021-12-01 01:40] LABS: Basophils % 0.3 %; Eosinophils # 0.1 K/mcL (0.0-0.6); Eosinophils % 1.6 %; Hematocrit 38.2 % (37.5-50.1); Immature Granulocytes % 0.8 % (0-4); Lymphocytes # 1.4 K/mcL (0.6-4.6); Mean Corpuscular HGB Conc 29.8 g/dL (31.6-35.5); Mean Corpuscular Hemoglobin 21.2 pg (28.0-33.3); Mean Corpuscular Volume 71.1 fL (83.0-100.0); Mean Platelet Volume 8.6 fL (9.4-12.4); Monocytes # 0.5 K/mcL (0.0-1.3); Monocytes % 6.1 %; Neutrophils # 6.5 K/mcL (1.6-8.9); Platelet Count 539 K/mcL (140-400); Red Blood Count 5.37 M/mcL (4.19-5.50); Red Cell Distribution Width 20.9 % (11.5-14.5); Segmented Neutrophils % 75.2 %; White Blood Count 8.6 K/mcL (4.3-11.1)
[2021-12-01 01:53] LABS: Hemoglobin 11.4 g/dL (12.9-16.9)
[2021-12-01 02:04] LABS: BUN/Creatinine Ratio 11 (6-26); Blood Urea Nitrogen 9 mg/dL (8-23); Calcium 8.7 mg/dL (8.6-10.3); Carbon Dioxide 23 mEq/L (23-29); Chloride 101 mEq/L (98-107); Glucose 81 mg/dL (70-105); Magnesium 1.9 mg/dL (1.6-2.6); Osmolality,Calculated 278 (280-300); Phosphorous 2.8 mg/dL (2.7-4.5); Potassium 3.7 mEq/L (3.5-5.1); Sodium 135 mEq/L (136-145); eGFR For African Americans > 60 (> 60); eGFR For Non-African Americans > 60 (> 60)
[2021-12-01] MEDS: Pantoprazole 40 MG VIAL IVP SCH (05:28)
[2021-12-01] MEDS: Acetaminophen IV 1,000 MG/100 ML BAG IVPB SCH ×3 (05:28→19:58)
[2021-12-01] MEDS: *HR* Heparin 5,000 UNIT/ML VIAL SQ SCH ×2 (05:28→17:46)
[2021-12-01] MEDS: MetroNIDAZOLE 500 MG/100 ML 500 MG/100 ML BAG IVPB SCH ×2 (07:56→17:46)
[2021-12-01] MEDS: Fluconazole 400 MG/200 ML 400 MG/200 ML BAG IVPB SCH (07:59)
[2021-12-01] MEDS: Lactobacillus 1 EACH CAP.SPRINK PO SCH ×2 (08:00→20:32)
[2021-12-01] MEDS: Chlorhexidine Rinse 15 ML MOUTHWASH MM SCH ×2 (08:00→20:32)
[2021-12-01] MEDS: cefTRIAXone 2,000 MG in 0.9 % Sodium Chloride 20 ML IVPB SCH (08:01)
[2021-12-01] MEDS: Multivit/Ca/Min/Fe/FA 1 TAB TABLET PO SCH (08:01)
[2021-12-01] MEDS: Dorzolamide OPTH 10 ML BOTTLE BOTH EYES SCH ×2 (08:03→20:32)
[2021-12-01] MEDS: polyethylene glycoL 3350 17 GM POWD.PACK PO SCH (08:03)
[2021-12-01] MEDS: Latanoprost 2.5 ML BOTTLE BOTH EYES SCH (20:32)
[2021-12-01] MEDS: Melatonin 3 MG TABLET PO PRN (20:32)
[2021-12-02] MEDS: Acetaminophen IV 1,000 MG/100 ML BAG IVPB SCH ×3 (01:00→12:30)
[2021-12-02] MEDS: MetroNIDAZOLE 500 MG/100 ML 500 MG/100 ML BAG IVPB SCH ×4 (01:45→23:25)
[2021-12-02] MEDS: *HR* Heparin 5,000 UNIT/ML VIAL SQ SCH ×2 (06:08→17:27)
[2021-12-02] MEDS: Fluconazole 400 MG/200 ML 400 MG/200 ML BAG IVPB SCH (07:42)
[2021-12-02] MEDS: Chlorhexidine Rinse 15 ML MOUTHWASH MM SCH ×2 (07:42→20:50)
[2021-12-02] MEDS: Lactobacillus 1 EACH CAP.SPRINK PO SCH ×2 (07:43→20:50)
[2021-12-02] MEDS: Multivit/Ca/Min/Fe/FA 1 TAB TABLET PO SCH (07:43)
[2021-12-02] MEDS: cefTRIAXone 2,000 MG in 0.9 % Sodium Chloride 20 ML IVPB SCH (07:43)
[2021-12-02] MEDS: polyethylene glycoL 3350 17 GM POWD.PACK PO SCH (07:43)
[2021-12-02] MEDS: Dorzolamide OPTH 10 ML BOTTLE BOTH EYES SCH ×2 (07:45→20:48)
[2021-12-02] MEDS: Latanoprost 2.5 ML BOTTLE BOTH EYES SCH (20:49)
[2021-12-02] MEDS: GuaiFENesin Liq 200 MG/10 ML UDC PO PRN (23:19)
[2021-12-02] MEDS: Melatonin 3 MG TABLET PO PRN (23:19)
[2021-12-03] MEDS: *HR* Heparin 5,000 UNIT/ML VIAL SQ SCH (06:26)
[2021-12-03 07:42] VITALS: PULSE 67
[2021-12-03] MEDS: Multivit/Ca/Min/Fe/FA 1 TAB TABLET PO SCH (07:45)
[2021-12-03] MEDS: Lactobacillus 1 EACH CAP.SPRINK PO SCH (07:45)
[2021-12-03] MEDS: Chlorhexidine Rinse 15 ML MOUTHWASH MM SCH (07:45)
[2021-12-03] MEDS: polyethylene glycoL 3350 17 GM POWD.PACK PO SCH (07:46)
[2021-12-03] MEDS: Fluconazole 400 MG/200 ML 400 MG/200 ML BAG IVPB SCH (07:46)
[2021-12-03] MEDS: MetroNIDAZOLE 500 MG/100 ML 500 MG/100 ML BAG IVPB SCH (07:47)
[2021-12-03] MEDS: cefTRIAXone 2,000 MG in 0.9 % Sodium Chloride 20 ML IVPB SCH (07:47)
[2021-12-03] MEDS: Dorzolamide OPTH 10 ML BOTTLE BOTH EYES SCH (07:48)
[2021-12-03 11:28] VITALS: BP 137/68; TEMP 97.6; O2SAT 96
== END 2021-12-03 14:10 | disposition home or self-care (01) | DRG 329 ==
LOC: EMEROOARM 10:40 → 3ANU 10:40 → SUATTDRO 19:49 → 3ANU 20:38
PROVIDERS: ADMIT Internal Medicine; ATTEND Internal Medicine
PROC: IRDRAIN (2021-11-25 12:00)